=== PATIENT | female | born 1955 | race Hispanic/Latino ===

== ENCOUNTER 2017-12-10 11:12 | Emergency (ER) | payer MEDICARE ==
[2017-12-10] MEDS ORDERED: LIDOCAINE HCL-MPF 1% 2ML VIAL ONE (12:06)
[2017-12-10] MEDS ORDERED: CEFTRIAXONE SODIUM 1 GM ONE (12:06)
== END 2017-12-10 12:30 | disposition home or self-care (01) ==
LOC: EDH 11:12
DX: L03.011 Cellulitis of right finger (principal); M19.90 Unspecified osteoarthritis, unspecified site; Z72.0 Tobacco use
CPT/HCPCS: 10060; 73140; 96372; 99284; J0696; J3490

== ENCOUNTER 2017-12-12 13:01 | Emergency (ER) | payer MEDICARE | END 2017-12-12 13:59 | disposition home or self-care (01) | LOC: EDH 13:01 | DX: Z48.00 Encounter for change or removal of nonsurgical wound dressing (principal); Z72.0 Tobacco use | CPT/HCPCS: 99282 ==